=== PATIENT | female | born 1945 | race Caucasian/White ===

== ENCOUNTER 2018-05-21 09:32 | Outpatient (CLI) | payer MEDICARE | END 2018-05-21 09:33 | disposition home or self-care (01) | LOC: BICMAMMO 09:32 | PROVIDERS: ATTEND Obstetrics & Gynecology | DX: Z12.31 Encounter for screening mammogram for malignant neoplasm of breast (principal) | CPT/HCPCS: 77063; 77067 ==

== ENCOUNTER 2019-06-02 12:10 | Outpatient (CLI) | payer MEDICARE ==
--- NOTE | 2019-06-02 12:44 | MMO ---
Bilateral MAMMO Bilat Screen [facility]. CLINICAL HISTORY: Patient is 74 years old and is seen for screening. The patient has no family history of breast cancer. The patient has no personal history of cancer. The patient has a history of left Cyst Aspiration in 1979 - Benign X 2-3 BIOPSIES. VIEWS: The views performed were: bilateral craniocaudal with tomosynthesis and bilateral mediolateral oblique with tomosynthesis. FILMS COMPARED: The present examination has been compared to prior imaging studies performed at [facility] on 05/08/2016, 05/09/2017, 05/28/2017 and 05/21/2018. MAMMOGRAM FINDINGS: There are scattered fibroglandular densities. There are no suspicious masses, suspicious calcifications, or new areas of architectural distortion. IMPRESSION: THERE IS NO MAMMOGRAPHIC EVIDENCE OF MALIGNANCY. A ROUTINE FOLLOW-UP MAMMOGRAM IN 1 YEAR IS RECOMMENDED. THE RESULTS OF THIS EXAM WERE SENT TO THE PATIENT. ACR BI-RADS Category 1 - Negative MAMMOGRAPHY NOTE: 1. A negative mammogram report should not delay a biopsy if a dominant of clinically suspicious mass is present. 2. Approximately 10% to 15% of breast cancers are not detected by mammography. 3. Adenosis and dense breasts may obscure an underlying neoplasm. Reported by: HERACLIO ROSADO MD Electonically Signed: [id number]
== END 2019-06-02 12:11 | disposition home or self-care (01) ==
LOC: BICMAMMO 12:10
DX: Z12.31 Encounter for screening mammogram for malignant neoplasm of breast (principal)
CPT/HCPCS: 77063; 77067

== ENCOUNTER 2021-06-21 09:59 | Outpatient (CLI) | payer MEDICARE | END 2021-06-21 10:00 | disposition home or self-care (01) | LOC: BICMAMMO 09:59 | PROVIDERS: ATTEND Obstetrics & Gynecology | DX: Z12.31 Encounter for screening mammogram for malignant neoplasm of breast (principal); Z91.89 Other specified personal risk factors, not elsewhere classified | CPT/HCPCS: 77063; 77067 ==

== ENCOUNTER 2022-06-27 10:30 | Outpatient (CLI) | payer MEDICARE | END 2022-06-27 10:31 | disposition home or self-care (01) | LOC: BICMAMMO 10:30 | PROVIDERS: ATTEND Nurse Practitioner Family | DX: Z12.31 Encounter for screening mammogram for malignant neoplasm of breast (principal); Z91.89 Other specified personal risk factors, not elsewhere classified | CPT/HCPCS: 77063; 77067 ==

== ENCOUNTER 2022-09-27 08:21 | Outpatient (CLI) | payer MEDICARE | END 2022-09-27 08:22 | disposition home or self-care (01) | LOC: BICMAMMO 08:21 | PROVIDERS: ATTEND Nurse Practitioner Family | DX: M85.89 Other specified disorders of bone density and structure, multiple sites (principal) | CPT/HCPCS: 77080 ==

== ENCOUNTER 2025-07-30 09:14 | Outpatient (CLI) | payer MEDICARE | END 2025-07-30 09:15 | disposition home or self-care (01) | LOC: BICMAMMO 09:14 | PROVIDERS: ATTEND Family Medicine | DX: Z12.31 Encounter for screening mammogram for malignant neoplasm of breast (principal) | CPT/HCPCS: 77063; 77067 ==